=== PATIENT | male | born 1985 | race Caucasian/White ===

== ENCOUNTER 2019-04-13 10:18 | Emergency (ER) | payer MEDICARE, MEDICAID, SELFPAY ==
[2019-04-13 10:28] VITALS: RESP 16; TEMP 37
--- NOTE | 2019-04-13 10:40 | DI.RAD_ITS ---
SYMPTOMS/DIAGNOSIS: PAIN AFTER FALL LEFT ANKLE AND LEFT FOOT: Three views of the ankle and three views of the foot were obtained. The ankle mortise appears well maintained. No fracture is identified.
--- NOTE | 2019-04-13 10:44 | ED.GENADUL_ITS ---
Discharge Plan Disposition Patient Disposition: HOME Condition: Stable Discharge Details Chief Complaint: Orthopedic Clinical Impression: Left ankle pain Primary Care Provider: Christine,Local ED Provider: Luis Enrique Pandey Discharge Instructions Instructions: Ankle Sprain (ED) Additional Instructions: if not better in a week see his primary care provider you can take 1000mg tylenol and 600mg ibuprofen every 6 hours for pain Medical Decision Making 34 yo male with hx of autism whose family has to provide all of his information and he doesn't communicate, comes in with left foot/ankle pain. He apparently tripped going down stairs yesterday on the last step. He was refusing to walk today so they brought him here. No obvious deformity. Seems to have pain over lateral malleolus and big toe without deformities, 2+ dp/pt pulses and will move the ankle fully but seems uncomfortable with this. Will xray to eval for fx xrays negative on my read though limited due to movement. He is now bearing weight without difficulty so feel he can be d/c'd home and f/u with pcp if not better in a week Differential Diagnosis sprain strain fx Imaging Data Radiologic Study: Attestation: I personally reviewed and interpreted this imaging study as follows: Imaging: X-Ray My impression: no acute findings on my read of ankle xray but limited due to motion Radiologic Study #2: Attestation: I personally reviewed and interpreted this imaging study as follows: Imaging: X-Ray My impression: no acute findings on foot xray on my read HPI General Mode of arrival: ambulatory . Date/Time Provider Initiated Documentation: 04/13/19 10:35 . Information obtained by: family . History of Present Illness 34 year old M presents to the emergency department with the chief complaint of left foot/ankle pain, Patient started experiencing this day(s) (1) and it has been constant. No relieving factors improve symptom(s), No exacerbating factors reported . General Stated Complaint: Orthopedic SILVESTRE: 4 Review of Systems Review of Systems Unobtainable due to (limited due to patient's autism, family provides some info) Constitutional Denies fever(s) Respiratory Denies cough PFSH Social History Smoking/Tobacco Use Status: Never Alcohol Intake: never Drug use: Never Substance use type: does not use Do you feel safe at home: Yes Do you feel safe in your relationship?: Yes Exam Const General: no acute distress Orientation: alert HENMT Head: normal to inspection Ears: external ears normal General nose exam: external nose normal Mouth: moist mucous membranes Eyes General: appearance normal, both eyes and all related structures Neck Neck: normal visual inspection Resp Effort & Inspection: normal respiratory effort Cardio Rate: regular rate Skin General skin exam: no rashes or lesions noted Neuro General: alert Extrem General: normal to inspection Psych Mental Status: mental status grossly normal Course Vital Signs Temperature 37.0 C 04/13/19 10:28 Respiratory Rate 16 04/13/19 10:28 Temperature 37.0 C 04/13/19 10:28 Temperature Source Temporal Artery Scan 04/13/19 10:28 Respiratory Rate 16 04/13/19 10:28 Respiratory Effort 04/13/19 10:31
== END 2019-04-13 11:55 | disposition home or self-care (01) ==
PROVIDERS: Emergency Provider Emergency Medicine
DX: M25.572 Pain in left ankle and joints of left foot (principal); W10.8XXA Fall (on) (from) other stairs and steps, initial encounter; F84.0 Autistic disorder
CPT/HCPCS: 99284; 73610; 73630; 99283